=== PATIENT | male | born 1945 | race Hispanic/Latino ===

== ENCOUNTER 2018-11-30 01:23 | Emergency (ER) | payer MEDICARE ==
[~2018-11-30 01:23] MED LIST: ACET-2247 PO; GLIP5TAB11 PO; MYCO250C7 PO; PRED20TA3 PO; TACR0.5C12 PO; TRAM-355 PO
[2018-11-30] MEDS ORDERED: METHYLPREDNISOLONE SOD SUCC 40MG/ML 1ML ONE (03:07)
[2018-11-30] MEDS ORDERED: IPRATROPIUM/ALBUTEROL SULFATE 3 ML SOLUTION IH ONE (03:08)
[2018-11-30] MEDS ORDERED: FUROSEMIDE 10 MG/ML 4ML VIAL ONE (03:08)
[2018-11-30 03:26] LABS: BASOPHILS % (AUTO) 0.2 % (0.0-5.0); EOSINOPHILS % (AUTO) 0.1 % (0.0-8.0); HEMATOCRIT 25.4 % (42-54); LYMPHOCYTES % (AUTO) 1.6 % (21.0-51.0); MEAN CORPUSCULAR HEMOGLOBIN 30.4 pg (27.0-33.0); MEAN CORPUSCULAR HGB CONC 33.2 g/dL (32.0-36.0); MEAN CORPUSCULAR VOLUME 91.4 fL (79-99); MONOCYTES % (AUTO) 2.5 % (3.0-13.0); NEUTROPHILS % (AUTO) 95.6 % (40.0-77.0); NUCLEATED RED BLOOD CELLS 0.1 % (0.0-0.19); PLATELET COUNT (AUTO) 32 K/uL (130-400); RED BLOOD CELL COUNT(AUTO) 2.78 MIL/uL (4.50-6.20); RED CELL DISTRIBUTION WIDTH 18.6 % (11.0-15.5); WHITE BLOOD COUNT (AUTO) 3.8 K/uL (4.8-10.8)
[2018-11-30 03:38] LABS: INR 1.41 (0.85-1.15); PARTIAL THROMBOPLASTIN TIME 38.7 SEC (26.3-35.5); PROTHROMBIN TIME 14.7 SEC (9.6-11.6)
[2018-11-30 03:58] LABS: ALBUMIN 2.5 g/dL (3.5-5.0); BILIRUBIN,TOTAL 2.2 mg/dL (0.2-1.0); CREATININE 2.7 mg/dL (0.5-1.5); POTASSIUM 4.1 mmol/L (3.5-5.1); TOTAL PROTEIN, SERUM 5.1 g/dL (6.0-8.3)
[2018-11-30 04:25] LABS: PLATELET MORPHOLOGY COMMENT MARKED DECREASE
[2018-11-30] MEDS ORDERED: NITROGLYCERIN 0.4 MG SL TAB SL ONE (06:07)
[2018-11-30] MEDS ORDERED: ONDANSETRON HCL 4 MG/2 ML VIAL ONE (07:30)
[2018-11-30] MEDS ORDERED: MORPHINE SULFATE 2 MG/ML 1ML SYG ONE (07:31)
== END 2018-11-30 08:35 | disposition home or self-care (01) ==
LOC: EDH 01:23
DX: J81.0 Acute pulmonary edema (principal); K74.60 Unspecified cirrhosis of liver; B19.20 Unspecified viral hepatitis C without hepatic coma; D64.9 Anemia, unspecified; D69.6 Thrombocytopenia, unspecified; I11.0 Hypertensive heart disease with heart failure; I50.9 Heart failure, unspecified; E11.9 Type 2 diabetes mellitus without complications; Z90.49 Acquired absence of other specified parts of digestive tract; Z95.1 Presence of aortocoronary bypass graft; Z94.0 Kidney transplant status
CPT/HCPCS: 36415; 71045; 80053; 82140; 84484; 85025; 85610; 85730; 86850; 86900; 86901; 93005; 94640; 96374; 96375; 99285; J1940; J2405; J2920